=== PATIENT | male | born 1975 | race Caucasian/White ===

== ENCOUNTER 2020-04-17 23:30 | Emergency (ER) | payer OTHER ==
--- NOTE | 2020-04-17 23:58 | ED Physician Documentation ---
PD HPI CHEST PAIN - Stated complaint Stated Complaint: PALPITATIONS, SOA - Chief complaint Chief Complaint: Cardiac - History obtained from History obtained from: Patient - History of Present Illness Timing - onset: How many hours ago (few) Timing - onset during: Light activity (he had had busy day with work, extra coffee, then was out for dinner and beers, when his boss called about extra work. Pt felt some chest heaviness and feeling of heart rast. He has Apple watch and noted his heart rate consistent at 100-115. Feeling anxious. In recent past, has had palpitations occ.) Timing - duration: Hours Timing - details: Gradual onset, Still present Quality: Tightness. No: Pressure, Tearing Location: Substernal Associated symptoms: Shortness of air, Palpitations (some palpitations but this evening with persistent tachycardia.). No: Nausea Similar symptoms before: No diagnosis Recently seen: Not recently seen Review of Systems Constitutional: denies: Fever, Chills Nose: denies: Rhinorrhea / runny nose, Congestion Throat: denies: Sore throat Respiratory: reports: Dyspnea. denies: Cough, Wheezing GI: denies: Abdominal Pain, Nausea, Vomiting, Diarrhea Skin: denies: Rash, Lesions Neurologic: denies: Generalized weakness, Near syncope, Headache Psychiatric: reports: Anxiety. denies: Insomnia Endocrine: denies: Weight loss PD PAST MEDICAL HISTORY - Past Medical History Cardiovascular: None Respiratory: None Neuro: None Endocrine/Autoimmune: None - Allergies Allergies/Adverse Reactions: Allergies Allergy/AdvReac Type Severity Reaction Status Date / Time No Known Drug Allergies Allergy Verified 04/17/20 23:48 PD ED PE NORMAL - Vitals Vital signs reviewed: Yes - General General: Alert and oriented X 3, No acute distress (talkative persistently, seems anxious.), Well developed/nourished - Neck Neck: Supple, no meningeal sign, No adenopathy - Cardiac Cardiac: RRR (regular and tachycardic, with some variation as he rests.), No murmur - Respiratory Respiratory: Clear bilaterally - Abdomen Abdomen: Soft, Non tender - Derm Derm: Normal color, Warm and dry - Extremities Extremities: No edema, No calf tenderness / cord - Neuro Neuro: Alert and oriented X 3, No motor deficit, Normal speech Results - Vitals Vitals: Vital Signs - 24 hr 09/04/18/20 04/18/20 23:43 00:07 01:51 Temperature 98.3 C H 36.8 C Heart Rate 113 H 113 H 92 Respiratory 14 14 25 H Rate Blood Pressure 118/81 H 118/81 H 141/92 H O2 Saturation 99 99 100 04/18/20 02:11 Temperature Heart Rate 71 Respiratory 17 Rate Blood Pressure 144/104 H O2 Saturation 98 Oxygen O2 Source Room air - EKG (time done) 23:51 Rate: Rate (enter#) (114) Rhythm: Sinus tachycardia [place]: Normal Intervals: Normal [place] QRS: Normal Ischemia: Normal ST segments. No: ST elevation c/w ischemia, ST depression - Labs Labs: Laboratory Tests 04/18/20 04/18/20 04/18/20 00:35 00:35 00:35 WBC 8.2 RBC 4.88 Hgb 14.4 Hct 42.4 MCV 86.9 MCH 29.5 MCHC 34.0 RDW 13.2 Plt Count 282 MPV 9.0 Neut # (Auto) 4.7 Lymph # (Auto) 2.8 [place] # (Auto) 0.4 Eos # (Auto) 0.2 Baso # (Auto) 0.0 Absolute Nucleated RBC 0.00 Nucleated RBC % 0.0 Sodium 143 Potassium 3.7 Chloride 107 Carbon Dioxide 27 Anion Gap 9.0 BUN 21 H Creatinine 1.0 Estimated GFR (MDRD) 82 L Glucose 114 H Calcium 9.7 Magnesium 2.3 Total Bilirubin 1.0 AST 21 ALT 40 Alkaline Phosphatase 55 Troponin I High Sens 3.1 C-Reactive Protein < 1.0 B-Natriuretic Peptide Total Protein 7.2 Albumin 4.4 Globulin 2.8 Albumin/Globulin Ratio 1.6 Lipase 32 TSH Thyroxine (T4) Total T3 04/18/20 04/18/20 04/18/20 00:35 00:35 00:35 WBC RBC Hgb Hct MCV MCH MCHC RDW Plt Count MPV Neut # (Auto) Lymph # (Auto) [place] # (Auto) Eos # (Auto) Baso # (Auto) Absolute Nucleated RBC Nucleated RBC % Sodium Potassium Chloride Carbon Dioxide Anion Gap BUN Creatinine Estimated GFR (MDRD) Glucose Calcium Magnesium Total Bilirubin AST ALT Alkaline Phosphatase Troponin I High Sens C-Reactive Protein B-Natriuretic Peptide 25 Total Protein Albumin Globulin Albumin/Globulin Ratio Lipase TSH 7.66 H Thyroxine (T4) 7.24 Total T3 1.17 - Rads (name of study) chest xray Radiology: Prelim report reviewed (no acute process), See rad report PD MEDICAL DECISION MAKING - ED course Complexity details: reviewed results (normal tests. HR is at 80s now after rested in ER. ), considered differential (seems like anxiety and presume tachycardia is related to hydration, use of caffeine and then stress/poor recent sleep. Had stressfull work load this week (works for [employer] and they had big release today). Can check for Trop, cxr, labs.), d/w patient Departure - Departure Disposition: Home, Self Care Clinical Impression: Sinus tachycardia, Anxiety Condition: Stable Record reviewed to determine appropriate education?: Yes Instructions: ED Palpitations Follow-Up: Jeremy Barrientos MD [Primary Care Provider] - Comments: No signs of more significant process based on your EKG/chest x-ray/blood tests. There is a suggestion of thyroid underfunctioning but the T3 and T4 results will come back tomorrow. You should be able access that through the patient portal. Stay well-hydrated and less caffeine. Regular mild exercise. Follow-up with your primary care if persistent fast heart rate or episodes of it going considerably faster such as 1 30-1 50 rate. The higher rate like that at rest would be possibly more indicative of A. fib or SVT. Occasional irregularity (palpitations) are typically benign and usually correlated with sleep, stress, hydration, caffeine use. Discharge Date/Time: 04/18/20 02:13
[2020-04-18 00:39] LABS: BASOPHILS % (AUTO) 0.5 %; EOSINOPHILS # (AUTO) 0.2 10^3/uL (0.0-0.7); EOSINOPHILS % (AUTO) 2.8 %; HGB - HEMOGLOBIN 14.4 g/dL (14.0-18.0); LYMPHOCYTES # (AUTO) 2.8 10^3/uL (1.5-3.5); LYMPHOCYTES % (AUTO) 34.3 %; MEAN CORPUSCULAR HEMOGLOBIN 29.5 pg (27.0-31.0); MEAN CORPUSCULAR VOLUME 86.9 fL (80.0-94.0); MONOCYTES # (AUTO) 0.4 10^3/uL (0.0-1.0); MONOCYTES % (AUTO) 5.1 %; NEUTROPHILS # (AUTO) 4.7 10^3/uL (1.5-6.6); NEUTROPHILS % (AUTO) 57.1 %; PLT - PLATELET COUNT 282 10^3/uL (130-450); RED BLOOD COUNT 4.88 10^6/uL (4.70-6.10); RED CELL DISTRIBUTION WIDTH 13.2 % (12.0-15.0); WHITE BLOOD COUNT 8.2 x10^3/uL (4.8-10.8)
[2020-04-18 00:57] LABS: ALBUMIN 4.4 g/dL (3.2-5.5); ALBUMIN/GLOBULIN RATIO 1.6 (1.0-2.2); ALKALINE PHOSPHATASE 55 IU/L (42-121); ALT ALANINE AMINOTRANSFERASE 40 IU/L (10-60); AST ASPARTATE AMINOTRANSFERASE 21 IU/L (10-42); BUN - BLOOD UREA NITROGEN 21 mg/dL (6-20); CALCIUM 9.7 mg/dL (8.5-10.3); CARBON DIOXIDE - CO2 27 mmol/L (21-32); CHLORIDE 107 mmol/L (101-111); GLUCOSE 114 mg/dL (70-100); LIPASE 32 U/L (22-51); MAGNESIUM 2.3 mg/dL (1.7-2.8); SODIUM 143 mmol/L (135-145); TOTAL PROTEIN 7.2 g/dL (6.7-8.2)
[2020-04-18 01:06] LABS: CRP - C-REACTIVE PROTEIN < 1.0 mg/dL (0-1.0)
[2020-04-18 02:02] LABS: T4 (THYROXINE) 7.24 ug/dL (6.09-12.23)
[2020-04-18 02:12] LABS: TOTAL T3 1.17 ng/mL (0.87-1.78)
[2020-04-18 02:13] VITALS: BP 144/104
--- NOTE | 2020-04-18 08:27 | XRAY Report ---
PROCEDURE: Chest 1 View X-Ray INDICATIONS: Chest Pain TECHNIQUE: One view of the chest was acquired. COMPARISON: None FINDINGS: Surgical changes and devices: None. Lungs and pleura: No pleural effusions or pneumothorax. Lungs are clear. Mediastinum: Mediastinal contours appear normal. Heart size is normal. Bones and chest wall: No suspicious bony lesions. Overlying soft tissues appear unremarkable. IMPRESSION: No acute pulmonary process. Reviewed by: Skye Blanco MD on 04/18/2020 8:25 AM PDT Approved by: Skye Blanco MD on 04/18/2020 8:25 AM PDT Station ID: [id number]
== END 2020-04-18 02:13 | disposition home or self-care (01) ==
LOC: ED 23:30
DX: F41.9 Anxiety disorder, unspecified (principal); R00.0 Tachycardia, unspecified
CPT/HCPCS: 36415; 71045; 80053; 83690; 83735; 83880; 84436; 84443; 84480; 84484; 85025; 86140; 93005; 99284

== ENCOUNTER 2021-01-19 01:47 | Emergency (ER) | payer OTHER ==
[2021-01-19] MEDS ORDERED: METOPROLOL 5 MG/5 ML VIAL IVP STA ×2 (02:05→02:30)
[2021-01-19] MEDS ORDERED: SODIUM CHLORIDE 0.9% 1,000 ML IV STA (02:05)
--- NOTE | 2021-01-19 02:09 | ED Physician Documentation ---
History of Present Illness - Stated complaint Stated Complaint: PALPITATIONS - Chief complaint Chief Complaint: Cardiac - History obtained from History obtained from: Patient - Additonal information Additional information: 45-year-old man with past medical history only of seasonal allergies, strong family history of atrial fibrillation and coronary artery disease in a first- degree relative over the age of 65, non-smoker, presents with palpitations starting around 11 PM this evening lasting about 2 hours before arriving to the emergency department. Patient states that he took turmeric and resveratrol this evening as well as having 2 beers. He was active in the yard earlier in the day and states he hasn't had much water to drink. He never went to sleep and then had new onset palpitations at 11. Denies chest pain. Some mild dyspnea PD PAST MEDICAL HISTORY - Past Medical History Cardiovascular: None Respiratory: None Neuro: None Endocrine/Autoimmune: None - Present Medications Home Medications: Ambulatory Orders Medication Instructions Recorded Confirmed Metoprolol Tartrate [Lopressor] 50 mg PO DAILY #30 tablet 01/19/21 - Allergies Allergies/Adverse Reactions: Allergies Allergy/AdvReac Type Severity Reaction Status Date / Time No Known Drug Allergies Allergy Verified 01/19/21 02:25 Results - Vitals Vitals: Vital Signs - 24 hr 01/19/21 01/19/21 01/19/21 02:03 02:05 02:19 Temperature 36 C L Heart Rate 85 158 H 140 H Respiratory 18 Rate Blood Pressure 115/85 H 143/120 H 169/120 H O2 Saturation 97 01/19/21 01/19/21 01/19/21 02:20 02:27 02:32 Temperature Heart Rate 116 H 110 H 113 H Respiratory Rate Blood Pressure 111/82 H 110/82 H O2 Saturation 98 01/19/21 01/19/21 01/19/21 02:42 02:47 02:55 Temperature 36.6 C Heart Rate 108 H 108 H 115 H Respiratory 13 Rate Blood Pressure 118/86 H 118/86 H 116/80 O2 Saturation 99 01/19/21 01/19/21 01/19/21 03:03 03:08 03:11 Temperature Heart Rate 129 H 77 79 Respiratory 14 11 L 19 Rate Blood Pressure 121/79 102/64 99/59 L O2 Saturation 98 96 97 Oxygen O2 Source Room air - EKG (time done) 0156 Rate: Rate (enter#) (155) Rhythm: Atrial fibrillation [place]: Normal QRS: Normal Ischemia: Normal ST segments Computer interpretation: Agree with computer - Labs Labs: Laboratory Tests 01/19/21 01/19/21 01/19/21 01:55 02:15 02:15 WBC 8.4 RBC 4.86 Hgb 14.7 Hct 41.9 L MCV 86.2 MCH 30.2 MCHC 35.1 RDW 13.0 Plt Count 267 MPV 9.0 Neut # (Auto) 4.6 Lymph # (Auto) 3.0 [place] # (Auto) 0.5 Eos # (Auto) 0.3 Baso # (Auto) 0.0 Absolute Nucleated RBC 0.00 Nucleated RBC % 0.0 Sodium 142 Potassium 3.6 Chloride 107 Carbon Dioxide 25 Anion Gap 10.0 BUN 25 H Creatinine 0.9 Estimated GFR (MDRD) 92 Glucose 136 H Calcium 9.2 Total Bilirubin 1.0 AST 20 ALT 35 Alkaline Phosphatase 59 Troponin I High Sens B-Natriuretic Peptide 25 Total Protein 7.1 Albumin 4.2 Globulin 2.9 Albumin/Globulin Ratio 1.4 Lipase 33 01/19/21 02:15 WBC RBC Hgb Hct MCV MCH MCHC RDW Plt Count MPV Neut # (Auto) Lymph # (Auto) [place] # (Auto) Eos # (Auto) Baso # (Auto) Absolute Nucleated RBC Nucleated RBC % Sodium Potassium Chloride Carbon Dioxide Anion Gap BUN Creatinine Estimated GFR (MDRD) Glucose Calcium Total Bilirubin AST ALT Alkaline Phosphatase Troponin I High Sens 4.7 B-Natriuretic Peptide Total Protein Albumin Globulin Albumin/Globulin Ratio Lipase PD MEDICAL DECISION MAKING - ED course ED course: 2:30am - HR ranging from 90 - 130 s/p 5mg iv metoprolol. will give 2nd dose now. patient stating his symptoms have improved. HR now in 80s s/p dilt and oral metoprolol. rate controlled afib. symptoms resolved. [id number] score 0 therefore I will not anticoagulate him. return precautions given. patient will f/u with pmd for referral to cardiology. Departure - Departure Disposition: 01 Home, Self Care Clinical Impression: Atrial fibrillation with RVR Condition: Good Instructions: Atrial Fibrillation Dc Prescriptions: Metoprolol Tartrate [Lopressor] 50 mg PO DAILY #30 tablet Comments: You were seen in the emergency department for atrial fibrillation. We treated your symptoms with metoprolol and diltiazem. Your lab work did not have any significant problems with it. You should follow-up with your primary doctor for referral to cardiology. Return to the emergency department if you have any new or worsening symptoms or other concerns.
[2021-01-19 02:20] LABS: BASOPHILS % (AUTO) 0.5 %; EOSINOPHILS # (AUTO) 0.3 10^3/uL (0.0-0.7); EOSINOPHILS % (AUTO) 3.4 %; HCT - HEMATOCRIT 41.9 % (42.0-52.0); HGB - HEMOGLOBIN 14.7 g/dL (14.0-18.0); LYMPHOCYTES % (AUTO) 35.3 %; MEAN CORPUSCULAR HEMOGLOBIN 30.2 pg (27.0-31.0); MEAN CORPUSCULAR HGB CONC 35.1 g/dL (32.0-36.0); MEAN CORPUSCULAR VOLUME 86.2 fL (80.0-94.0); MONOCYTES # (AUTO) 0.5 10^3/uL (0.0-1.0); MONOCYTES % (AUTO) 6.1 %; NEUTROPHILS # (AUTO) 4.6 10^3/uL (1.5-6.6); NEUTROPHILS % (AUTO) 54.5 %; PLT - PLATELET COUNT 267 10^3/uL (130-450); RED BLOOD COUNT 4.86 10^6/uL (4.70-6.10); WHITE BLOOD COUNT 8.4 x10^3/uL (4.8-10.8)
[2021-01-19] MEDS ORDERED: METOPROLOL TARTRATE 50 MG TABLET PO STA (02:31)
[2021-01-19] MEDS ORDERED: diltiaZEM INJ 5 MG/ML VIAL IVP STA (02:58)
[2021-01-19 03:04] LABS: ALBUMIN 4.2 g/dL (3.2-5.5); ALBUMIN/GLOBULIN RATIO 1.4 (1.0-2.2); CALCIUM 9.2 mg/dL (8.5-10.3); CREATININE 0.9 mg/dL (0.6-1.2); POTASSIUM 3.6 mmol/L (3.5-5.0); TOTAL PROTEIN 7.1 g/dL (6.7-8.2)
[2021-01-19 03:44] VITALS: BP 112/69
== END 2021-01-19 03:48 | disposition home or self-care (01) ==
LOC: ED 01:47
DX: I48.91 Unspecified atrial fibrillation (principal); Z82.49 Family history of ischemic heart disease and other diseases of the circulatory system
CPT/HCPCS: 36415; 80053; 83690; 83880; 84484; 85025; 93005; 96361; 96374; 96375; 99283; 99284; A9270

== ENCOUNTER 2021-02-18 11:26 | Outpatient (CLI) | payer OTHER | END 2021-02-18 11:27 | disposition short-term general hospital (02) | LOC: EMS 11:26 | DX: R00.2 Palpitations (principal); R06.09 Other forms of dyspnea | CPT/HCPCS: A0425; A0427 ==